=== PATIENT | male | born 1990 | race African-American/Black ===

== ENCOUNTER 2024-12-11 20:49 | Emergency (ER) | payer MEDICAID ==
[~2024-12-11] VITALS: Ht 175.3 cm; Wt 73.0 kg
[2024-12-11 20:55] VITALS: O2SAT 97
[2024-12-11] MEDS: FUROSEMIDE 40MG/4ML VIAL IV ONE (21:57)
[2024-12-11 22:05] LABS: BASOPHILS % 0.1 % (0.0-2.0); EOSINOPHILS % 2.7 % (0.0-5.0); HEMATOCRIT. 30.0 % (42.0-52.0); HEMOGLOBIN. 9.3 g/dL (14.0-18.0); LYMPHOCYTES % 11.9 % (20.0-50.0); MEAN PLATELET VOLUME 6.7 fl (7.4-10.4); MONOCYTES % 5.2 % (2.0-8.0); NEUTROPHILS % 80.1 % (40.0-76.0); PLATELET 424 x1000/uL (130-400); RED BLOOD CELL COUNT 3.45 mill/uL (4.7-6.1); RED CELL DISTRIBUTION WIDTH 17.6 % (11.6-14.6)
[2024-12-11 22:23] LABS: INR 1.0
[2024-12-11 22:27] LABS: CREATININE 3.9 mg/dL (0.6-1.3); ETHANOL BLOOD < 10 mg/dL (<10); TROPONIN I HIGH SENSITIVITY 5 ng/L (3.0-53)
[2024-12-11 22:28] LABS: ASPARTATE AMINOTRANSFERASE 20 IU/L (<34)
[2024-12-11 22:29] LABS: BILIRUBIN DIRECT < 0.1 mg/dL (<=3.0); BILIRUBIN TOTAL 0.3 mg/dL (0.1-1.0); PROTEIN TOTAL 4.7 g/dL (6.0-8.3)
[2024-12-11 22:35] LABS: UREA NITROGEN BLOOD 104 mg/dL (9-23)
[2024-12-11 22:50] LABS: CLARITY URINE CLOUDY (CLEAR); COLOR URINE YELLOW (YELLOW); GLUCOSE URINE NEGATIVE (NEGATIVE); KETONES URINE NEGATIVE (NEGATIVE); LEUKOCYTE ESTERASE URINE 1+ (NEGATIVE); NITRITE URINE NEGATIVE (NEGATIVE); OCCULT BLOOD URINE 3+ (NEGATIVE); PH URINE 5.5 (4.5-8.0); PROTEIN URINE 4+ (NEGATIVE); SPECIFIC GRAVITY URINE 1.013 (1.005-1.030); UROBILINOGEN URINE 0.2 E.U./dL (0.2-1.0)
[2024-12-11 22:58] LABS: *AMPHETAMINES SCREEN URINE PRESUMPTIVE POSITIVE (NEGATIVE); *BARBITURATES SCREEN URINE NEGATIVE (NEGATIVE); *BENZODIAZEPINES SCREEN URINE NEGATIVE (NEGATIVE); *COCAINE SCREEN URINE NEGATIVE (NEGATIVE); CANNABINOID URINE SCREEN NEGATIVE (NEGATIVE); ECSTASY MDMA SCREEN URINE NEGATIVE (NEGATIVE); METHADONE URINE SCREEN NEGATIVE (NEGATIVE); OPIATES URINE SCREEN NEGATIVE (NEGATIVE); PHENCYCLIDINE URINE SCREEN NEGATIVE (NEGATIVE)
[2024-12-11 23:00] LABS: BACTERIA URINE TRACE; RBC URINE 50-100 /hpf (0-2); SQUAMOUS EPITHELIAL CELL URINE FEW /lpf (RARE/1+); WBC URINE 25-50 /hpf (0-2)
[2024-12-11 23:56] LABS: TROPONIN I HIGH SENSITIVITY 5 ng/L (3.0-53)
[2024-12-12] MEDS: CEFTRIAXONE 2GM/50ML 50 ML IV NR (00:17)
[2024-12-12] MEDS: ALBUMIN HUMAN 12.5GM/50ML (25%) IV NR (00:36)
[2024-12-12 01:20] VITALS: BP 147/78; PULSE 90; RESP 18; TEMP 37.1; O2SAT 99
== END 2024-12-12 01:56 | disposition short-term general hospital (02) ==
LOC: ER 20:49 → EDBEDREQ 23:52 → EDBEDREQTM 23:52 → ENRESERV 12-12 00:05 → ER 12-12 01:56 → CMPBEDREQ 12-12 07:35
DX: R06.1 Stridor (principal); F12.10 Cannabis abuse, uncomplicated; F15.10 Other stimulant abuse, uncomplicated; G40.909 Epilepsy, unspecified, not intractable, without status epilepticus; N18.6 End stage renal disease; R06.02 Shortness of breath; Z88.0 Allergy status to penicillin; Z99.2 Dependence on renal dialysis
CPT/HCPCS: 80076; 80305; 80048; 81003; 83880; 85025; 85610; 84484; 36415; 71045; 93005; 96375 ×2; 99291; 96365; G0480; P9047; J0696; J1938; Z7610; 80320; 99285